=== PATIENT | female | born 1960 | race Asian ===

== ENCOUNTER 2017-10-02 11:24 | Outpatient (CLI) | payer SELFPAY ==
--- NOTE | 2017-10-02 12:28 | Diagnostic Imaging Report ---
Indication: Pain 3 views of the left knee were obtained. Findings: Bones are osteopenic. There is no obvious acute fracture identified. Alignment is normal. Marginal spurs demonstrated with some narrowing of the joint space. IMPRESSION: No obvious acute fracture. Osteoporosis Arthrosis
--- NOTE | 2017-10-02 12:29 | Diagnostic Imaging Report ---
Indication: pain Pelvic trauma and pain Findings: Single AP view of the pelvis was performed. No acute fracture is identified. The bones are osteopenic diffusely. Bilateral hips and sacroiliac joints appear symmetric.There is no malalignment. Soft tissues are unremarkable. Degenerative changes at the lumbosacral junction demonstrated. Impression: No acute findings.
== END 2017-10-02 13:24 | disposition home or self-care (01) ==
LOC: RAD 11:24
DX: M17.12 Unilateral primary osteoarthritis, left knee (principal); M81.0 Age-related osteoporosis without current pathological fracture
CPT/HCPCS: 72170

== ENCOUNTER → 2017-10-04 | Outpatient (CLI) | payer SELFPAY ==
--- NOTE | 2017-10-05 10:47 | Diagnostic Imaging Report ---
Indication: Pain Technique: Frontal view of the left knee and frontal view of the bilateral knees. Comparison: Complete left knee series 10/02/2017 Findings: Bones appear demineralized. No evidence of acute fracture or dislocation. Mild degenerative change with some very mild medial compartment joint space narrowing and mild marginal osteophytes. No focal soft tissue abnormality is appreciated. No radiopaque foreign body seen. IMPRESSION: Mild degenerative change. No acute fracture or dislocation.
--- NOTE | 2017-10-05 10:49 | Diagnostic Imaging Report ---
Indication: Pain Technique: Frontal view of the right knee Comparison: None Findings: Bones appear mildly demineralized. There is no evidence of acute fracture. Mild degenerative change with medial compartment joint space narrowing and small marginal osteophytes. No focal soft tissue abnormality is appreciated. No radiopaque foreign body seen. IMPRESSION: Mild degenerative change. No acute fracture
== END | disposition home or self-care (01) ==
LOC: RAD 14:06
DX: M17.12 Unilateral primary osteoarthritis, left knee (principal); M25.561 Pain in right knee